=== PATIENT | female | born 1980 | race Caucasian/White ===

== ENCOUNTER 2018-05-30 15:32 | Outpatient (CLI) | payer OTHER ==
--- NOTE | 2018-05-30 17:20 | RAD ---
THORACIC SPINE THREE VIEWS: INDICATIONS: Mid back pain without injury. FINDINGS: There is a very mild thoracolumbar scoliosis. No congenital vertebral anomaly is evident. Vertebral body heights are within normal limits. There is mild multilevel disk degenerative disease seen arou nd the mid thoracic spine level. No acute fracture is evident. The visualized lungs are clear. Hea rt size appears within normal limits. IMPRESSION: 1. Mild thoracic spondylosis. 2. Mild thoracolumbar scoliosis. POS: [facility]
== END 2018-05-30 15:33 | disposition home or self-care (01) ==
LOC: SCSRAD 15:32
PROVIDERS: ATTEND Nurse Practitioner Family
DX: M54.6 Pain in thoracic spine (principal); M47.814 Spondylosis without myelopathy or radiculopathy, thoracic region; M41.9 Scoliosis, unspecified
CPT/HCPCS: 72072